=== PATIENT | female | born 1960 | race Two or more races ===

== ENCOUNTER → 2024-11-07 | Outpatient (CLI) | payer MEDICAID, SELFPAY ==
--- NOTE | 2024-11-07 16:45 | XR_ITS ---
Examination: MRI lumbar spine without contrast Date and time of exam: November 07, 2024 1816 hours INDICATIONS: Patient fell 10 years ago with injury to the lower back, followed by lower back pain numbness in the legs Technique: Multiple MRI axial and sagittal sections lumbar spine. Sagittal T2-weighted images, TR 3500, TE 118 T1 weighted transverse sections, TR 688 T8.5, T2-weighted sagittal sections T1 weighted sagittal sections TR 621, TE 30 T2 axial sections, TR 4, 190, TE 84. Findings: Adequate alignment lumbar vertebral bodies on the lateral view No lumbar fracture Mild disc narrowing L1-L2 Normal marrow signal lumbar vertebral bodies Diffuse lumbar disc desiccation No spondylolisthesis L5-S1 no disc protrusion L4-L5 no disc protrusion L3-L4 no disc protrusion L2-L3 no disc protrusion L1-L2 no disc protrusion IMPRESSION: Mild lumbar disc narrowing L1-L2 No lumbar fracture No focal lumbar disc protrusion
== END | disposition home or self-care (01) ==
LOC: SMRI 11-10 07:53
PROVIDERS: PCP Physician Assistant; Referring Provider Nurse Practitioner; Visit Provider Nurse Practitioner
DX: M48.061 Spinal stenosis, lumbar region without neurogenic claudication (principal)
CPT/HCPCS: 72148

== ENCOUNTER 2025-03-09 12:39 | Emergency (ER) | payer MEDICAID, SELFPAY ==
[2025-03-09 12:40] VITALS: BMI 18.0
[2025-03-09 12:48] VITALS: BP 168/98; PULSE 108; RESP 18; TEMP 36.9; O2SAT 100
--- NOTE | 2025-03-09 13:05 | PD.EDRME ---
Rapid Medical Screening Exam RME Arrival date/time: 03/09/25 12:39 64-year-old female with Parkinson's disease presents with concerns for anxiety and increased shaking Chief Complaint: Recheck/Abnormal Lab/Rx Vital signs: Vital Signs Temperature 98.4 F 03/09/25 12:48 Pulse Rate 108 H 03/09/25 12:48 Respiratory Rate 18 03/09/25 12:48 Blood Pressure 168/98 H 03/09/25 12:48 Pulse Oximetry (%) 100 03/09/25 12:48 Oxygen Delivery Method Room Air 03/09/25 12:48
[2025-03-09 13:27] LABS: Basophils % (Auto) 0 % (0-2.5); Eosinophils % (Auto) 0 % (0-10); Hematocrit 37.4 % (36.0-46.0); Hemoglobin 12.5 g/dL (12.0-16.0); Immature Granulocytes % (Auto) 0 % (0-0); Immature Granulocytes Auto 0.03 Thou/mm3 (0.00-0.00); Lymphocytes # (Auto) 2.2 Thou/mm3 (1.0-4.8); Lymphocytes % (Auto) 23 % (10-50); Mean Corpuscular HGB Conc 33.4 g/dl (31.0-37.0); Mean Corpuscular Hemoglobin 31.5 pg (25.0-35.0); Mean Corpuscular Volume 94 fL (80-100); Monocytes # (Auto) 0.5 Thou/mm3 (0.0-0.8); Monocytes % (Auto) 5 % (0-12); Neutrophils # (Auto) 6.7 Thou/mm3 (1.8-7.7); Neutrophils % (Auto) 71 % (37-80); Nucleated Red Blood Cell % 0 /100 WBC (0); Platelet Count 289 Thou/mm3 (140-440); RDW Standard Deviation 44.1 fL (36.4-46.3); Red Blood Count 3.97 Miln/mm3 (4.00-5.20); White Blood Count 9.6 Thou/mm3 (3.6-11.0)
[2025-03-09 13:44] LABS: Alanine Aminotransferase < 7 U/L (10-49); Albumin, Serum 5.1 gm/dL (3.4-4.8); Albumin/Globulin Ratio 1.4 (1.2-2.2); Alkaline Phosphatase 93 U/L (46-116); Anion Gap 11 (7-16); Aspartate Amino Transferase 18 U/L (0-34); BUN/Creatinine Ratio 21 Ratio (12-20); Bilirubin,Total 0.5 mg/dL (0.3-1.2); Blood Urea Nitrogen 15 mg/dL (9-23); Calcium 10.6 mg/dL (8.3-10.6); Calcium (Corrected) 10.6 mg/dL (8.5-10.1); Carbon Dioxide 26.9 mMol/L (20.0-31.0); Chloride 102 mMol/L (98-107); Creatinine (Component) 0.7 mg/dL (0.6-1.3); Estimated Creatinine Clearance 62.7 mL/min (>60); Globulin 3.7 gm/dL (2.3-3.5); Glucose 129 mg/dL (74-106); Magnesium 2.3 mg/dL (1.6-2.6); Osmolality,Calculated 282 (275-295); Potassium 3.8 mMol/L (3.4-5.1); Sodium 140 mMol/L (136-145); Total Protein 8.8 gm/dL (5.7-8.2); eGFR > 60 See Note
--- NOTE | 2025-03-09 14:14 | PC.NURSE ---
nax 1 at this time
--- NOTE | 2025-03-09 14:31 | PC.NURSE ---
nax2 at this time
--- NOTE | 2025-03-09 15:23 | PC.NURSE ---
called for meds. no answer x 3. checked outside and lobby. patient eloped. notified provider.
== END 2025-03-09 15:38 | disposition left against medical advice (07) ==
LOC: SERX 13:41
PROVIDERS: Nurse Practitioner Primary Care; Emergency Provider Family Medicine; PCP Obstetrics & Gynecology
DX: F41.9 Anxiety disorder, unspecified (principal); G20.A1 Parkinson's disease without dyskinesia, without mention of fluctuations; Z53.29 Procedure and treatment not carried out because of patient's decision for other reasons
CPT/HCPCS: 36415; 80053; 83735; 85025; 99281

== ENCOUNTER 2025-03-23 13:12 | Emergency (ER) | payer MEDICAID, SELFPAY ==
[2025-03-23 13:14] VITALS: BMI 18.3
[2025-03-23 13:40] VITALS: BP 131/90; PULSE 115; RESP 19; TEMP 36.7; O2SAT 96
--- NOTE | 2025-03-23 13:45 | XR_ITS ---
Examination: AP lateral chest 2 views TECHNIQUE: Sitting AP lateral chest 2 views Date and time: March 23, 2025 1440 hours INDICATIONS: Acute chest pain today. FINDINGS: Normal heart size. Lungs are clear. Moderate osteopenia IMPRESSION: No active disease
--- NOTE | 2025-03-23 13:46 | PD.EDRME ---
Rapid Medical Screening Exam RME Arrival date/time: 03/23/25 13:12 64-year-old female with a history of Parkinson's disease presents to the emergency room with a chief complaint of chest pain, palpitations, shortness of breath, fatigue x 2 weeks that is progressively gotten worse the last 3 days. Patient states she was sent over to the emergency room by her neurologist. Patient's caregiver believes her symptoms are due to a cause in her Parkinson medication carbidopa levodopa. I have greeted and performed a focused initial assessment of this patient. A comprehensive ED assessment and evaluation of the patient, analysis of all test results, and completion of the medical decision making process will be conducted by additional ED providers. Chief Complaint: General Adult/Misc Complain Time Seen by Provider: 03/23/25 13:19 Vital signs: Vital Signs Temperature 98.1 F 03/23/25 13:40 Pulse Rate 115 H 03/23/25 13:40 Respiratory Rate 19 03/23/25 13:40 Blood Pressure 131/90 H 03/23/25 13:40 Pulse Oximetry (%) 96 03/23/25 13:40 Oxygen Delivery Method Room Air 03/23/25 13:40 Vital signs reviewed by provider: Yes
[2025-03-23] MEDS: ACETAMINOPHEN 325 MG TABLET 650 MG PO (14:03)
[2025-03-23 15:12] LABS: Basophils % (Auto) 1 % (0-2.5); Eosinophils % (Auto) 0 % (0-10); Immature Granulocytes % (Auto) 0 % (0-0); Immature Granulocytes Auto 0.02 Thou/mm3 (0.00-0.00); Lymphocytes # (Auto) 1.7 Thou/mm3 (1.0-4.8); Lymphocytes % (Auto) 20 % (10-50); Mean Corpuscular HGB Conc 33.3 g/dl (31.0-37.0); Mean Corpuscular Hemoglobin 32.2 pg (25.0-35.0); Mean Corpuscular Volume 97 fL (80-100); Monocytes # (Auto) 0.5 Thou/mm3 (0.0-0.8); Monocytes % (Auto) 5 % (0-12); Neutrophils # (Auto) 6.4 Thou/mm3 (1.8-7.7); Neutrophils % (Auto) 74 % (37-80); Nucleated Red Blood Cell % 0 /100 WBC (0); Platelet Count 315 Thou/mm3 (140-440); Red Blood Count 4.04 Miln/mm3 (4.00-5.20); White Blood Count 8.6 Thou/mm3 (3.6-11.0)
[2025-03-23 15:23] LABS: B-Type Natriuretic Peptide < 20 pg/mL (0-100)
[2025-03-23 15:31] LABS: Partial Thromboplastin Time 25.1 Seconds (22.0-36.0); Prothrombin Time 11.2 Seconds (9.0-12.2)
[2025-03-23 15:36] LABS: Alanine Aminotransferase < 7 U/L (10-49); Albumin, Serum 4.8 gm/dL (3.4-4.8); Albumin/Globulin Ratio 1.5 (1.2-2.2); Alkaline Phosphatase 104 U/L (46-116); Anion Gap 11 (7-16); BUN/Creatinine Ratio 21 Ratio (12-20); Bilirubin,Total 0.5 mg/dL (0.3-1.2); Blood Urea Nitrogen 17 mg/dL (9-23); Calcium 9.6 mg/dL (8.3-10.6); Calcium (Corrected) 9.6 mg/dL (8.5-10.1); Carbon Dioxide 28.5 mMol/L (20.0-31.0); Chloride 102 mMol/L (98-107); Creatinine (Component) 0.8 mg/dL (0.6-1.3); Estimated Creatinine Clearance 57.4 mL/min (>60); Globulin 3.3 gm/dL (2.3-3.5); Glucose 136 mg/dL (74-106); Magnesium 2.1 mg/dL (1.6-2.6); Osmolality,Calculated 284 (275-295); Potassium 4.4 mMol/L (3.4-5.1); Sodium 141 mMol/L (136-145); Total Protein 8.1 gm/dL (5.7-8.2); Troponin I < 0.002 ng/mL (0.0-0.045); eGFR > 60 See Note
--- NOTE | 2025-03-23 19:17 | PC.NURSE ---
AT 1903 DAY SHIFT IS LOOKING FOR PT.
--- NOTE | 2025-03-23 19:17 | PC.NURSE ---
PT IS NOT IN CONF , NO ANSWER AT ER LOBBY OR OUTSIDE ER.
--- NOTE | 2025-03-23 19:22 | PC.NURSE ---
NO ANSWER AT ER LOBBY OR OUTSIDE ER.
== END 2025-03-23 19:22 | disposition left against medical advice (07) ==
PROVIDERS: Nurse Practitioner Family; Emergency Provider Family Medicine
DX: R07.9 Chest pain, unspecified (principal); R00.2 Palpitations; R06.02 Shortness of breath; R53.83 Other fatigue; R00.0 Tachycardia, unspecified; Z53.29 Procedure and treatment not carried out because of patient's decision for other reasons
CPT/HCPCS: 36415; 71046; 80053; 81001; 83735; 83880; 84484; 85025; 85610; 85730; 93005; 99281; A9270

== ENCOUNTER 2025-09-25 07:51 | Emergency (ER) | payer MEDICAID, SELFPAY ==
[2025-09-25 07:52] VITALS: BP 191/93; RESP 19; TEMP 36.9; O2SAT 94
[2025-09-25 07:57] VITALS: PULSE 108; RESP 19; O2SAT 97; BMI 18.3
--- NOTE | 2025-09-25 08:12 | EKG_ITS ---
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
--- NOTE | 2025-09-25 09:27 | XR_ITS ---
EXAMINATION: AP chest single view TECHNIQUE: AP portable semiupright chest single view Date and time: September 25, 2025, 1129 hours INDICATIONS: Reaction to medications today. FINDINGS: Minimal prominence left ventricle Ectatic thoracic aorta. No pneumonia or pulmonary edema. Prominent osteopenia IMPRESSION: No pneumonia or pulmonary edema
--- NOTE | 2025-09-25 09:31 | XR_ITS ---
Examination: CT brain head without contrast. 2-D sagittal coronal reconstructions Date and time of exam: 09/25/2025 at 10:58 a.m. CTDI: vol (mGy): 49 point DLP: (mGycm): 962 Comparison study 01/01/2021 Technique: Multiple CT axial sections of the brain have been obtained, 5 mm slice thickness. Contrast has not been administered. 2-D sagittal, coronal reconstructions have been obtained Low dose protocols were performed. One or more of the following dose reduction techniques were used; automated exposure control, adjustment of the mA and/or KV according to patient size, use of iterative reconstruction technique. Findings: There is moderate cerebral cortical atrophy noted over the anterior parietal convexities and its particularly prominent over the anterior temporal lobes on both sides. This has increased since the previous CT of 01/01/2021 I believe that the lateral and third ventricles are very minimally enlarged, the have not changed in size at all since the previous CT. Sylvian cisterns are mildly enlarged No abnormalities are seen in the [place] or white matter in the cerebrum and cerebellum or brainstem. Mild carotid artery calcification is seen in the region of the cavernous sinus bilaterally. All of the paranasal sinuses and mastoids appear clear and normal. The pituitary gland appears mildly but definitely enlarged, its superior margin is convex upward. This was not present on the previous CT study. IMPRESSION: 1. There is mild-moderate cerebral cortical atrophy noted over the frontoparietal convexities. This is definitely more prominent than on the prior CT. Ventricular system is minimally enlarged but this is unchanged. The sylvian cisterns are also slightly enlarged indicating mild atrophy in the region of the insula bilaterally. 2. I do not see any abnormalities in the [place] or white matter in the cerebrum cerebellum or brainstem 3. I believe the pituitary gland is slightly definitely enlarged. I do not believe this was present on the previous CT scan scan. I would correlate this with evaluation of all enzymes related to pituitary gland function, and I would recommend CT follow-up of this in about 6 months No significant ventricular enlargement. Intra-axial or extra-axial hemorrhage density is not seen. No mass effect or midline shift Basal cisterns are not remarkable. Fourth ventricle is midline. Cranial vault intact. Impression: Negative for acute hemorrhage, mass effect or midline shift
[2025-09-25 10:08] LABS: Collection Type, Urine Clean Catch
[2025-09-25 10:12] LABS: Lactate (Lactic Acid) 1.2 mMol/L (0.4-2.0)
[2025-09-25] MEDS: SODIUM CHLORIDE 0.9% 500 ML 500 ML 100 ML IV (10:12)
[2025-09-25] MEDS: MethylPREDNISolone SOD SUCC 62.5 MG/ML 2ML VIAL 60 MG IVP (10:13)
[2025-09-25 10:16] LABS: Bilirubin,Urine Negative (Negative); Blood,Urine 1+ (Negative); Clarity,Urine Clear (Clear/Hazy); Color,Urine Lt-Yellow (Lt Yel-Yel); Glucose, Urine Negative (Negative); Hyaline Casts,Urine < 1 /hpf (0-1); Ketones,Urine Trace (Negative); Leukocyte Esterase,Urine Negative (Negative); Nitrite,Urine Negative (Negative); PH,Urine 6.0 (5.0-7.0); Protein,Urine Negative (Neg - Trace); RBC,Urine 3 /hpf (0-3); Specific Gravity,Urine 1.012 (1.001-1.035); Squamous Epithelial Cell,Urine 1 /hpf (0-5); Urobilinogen,Urine Negative mg/dL (0.0-1.0); WBC,Urine 2 /hpf (0-5)
[2025-09-25 10:20] LABS: Basophils # (Auto) 0.0 Thou/mm3 (0.0-0.2); Basophils % (Auto) 0 % (0-2.5); Eosinophils # (Auto) 0.0 Thou/mm3 (0.0-0.5); Eosinophils % (Auto) 0 % (0-10); Hematocrit 37.1 % (36.0-46.0); Hemoglobin 12.7 g/dL (12.0-16.0); Immature Granulocytes Auto 0.03 Thou/mm3 (0.00-0.00); Lymphocytes # (Auto) 2.0 Thou/mm3 (1.0-4.8); Lymphocytes % (Auto) 20 % (10-50); Mean Corpuscular HGB Conc 34.2 g/dl (31.0-37.0); Mean Corpuscular Hemoglobin 31.1 pg (25.0-35.0); Mean Corpuscular Volume 91 fL (80-100); Monocytes # (Auto) 0.5 Thou/mm3 (0.0-0.8); Monocytes % (Auto) 5 % (0-12); Neutrophils # (Auto) 7.5 Thou/mm3 (1.8-7.7); Neutrophils % (Auto) 75 % (37-80); Nucleated Red Blood Cell # 0.00 Thou/mm3 (0.00-0.00); Nucleated Red Blood Cell % 0 /100 WBC (0); Platelet Count 317 Thou/mm3 (140-440); RDW Standard Deviation 41.9 fL (36.4-46.3); Red Blood Count 4.09 Miln/mm3 (4.00-5.20); White Blood Count 10.0 Thou/mm3 (3.6-11.0)
[2025-09-25 10:32] VITALS: BP 148/86; PULSE 64; RESP 19; TEMP 36.8; O2SAT 97
[2025-09-25 10:43] LABS: INR 1.0 (0.9-1.3); Prothrombin Time 11.0 Seconds (9.0-12.2)
[2025-09-25 10:52] LABS: B-Type Natriuretic Peptide 25 pg/mL (0-100)
[2025-09-25 10:55] LABS: Alanine Aminotransferase 26 U/L (10-49); Albumin, Serum 4.7 gm/dL (3.4-4.8); Albumin/Globulin Ratio 1.3 (1.2-2.2); Alkaline Phosphatase 96 U/L (46-116); Anion Gap 11 (7-16); Aspartate Amino Transferase 29 U/L (0-34); BUN/Creatinine Ratio 17 Ratio (12-20); Bilirubin,Total 0.6 mg/dL (0.3-1.2); Blood Urea Nitrogen 12 mg/dL (9-23); Calcium 10.2 mg/dL (8.3-10.6); Calcium (Corrected) 10.2 mg/dL (8.5-10.1); Carbon Dioxide 26.1 mMol/L (20.0-31.0); Chloride 102 mMol/L (98-107); Creatinine (Component) 0.7 mg/dL (0.6-1.3); Estimated Creatinine Clearance 64.8 mL/min (>60); Globulin 3.7 gm/dL (2.3-3.5); Glucose 111 mg/dL (74-106); Magnesium 1.9 mg/dL (1.6-2.6); Osmolality,Calculated 278 (275-295); Potassium 4.3 mMol/L (3.4-5.1); Sodium 139 mMol/L (136-145); Total Protein 8.4 gm/dL (5.7-8.2); Troponin I < 0.020 ng/mL (0.0-0.045); eGFR > 60 See Note
--- NOTE | 2025-09-25 11:06 | EDNOTE_ITS ---
ED SOB =RME/HPI General Chief Complaint: Shortness of Breath/Dyspnea Stated Complaint: SOB Arrival date/time: 09/25/25 07:51 Limitations: no limitations RME / HPI RME / HPI Narrative: 65 year old female with history of Parkinson's disease, hypertension presents to the ED BIBA from SNF for evaluation of difficulty swallowing beginning 1 week ago. Accompanied by occasionally feeling short of breath. In the ED, patient has no other associated symptoms or complaints. Related Data Previous Rx's ?Medication ?Instructions ?Recorded hydrocodone 10 mg-acetaminophen 1 tab PO TID PRN pain #20 tabs 01/01/21 325 mg tablet Allergies Allergy/AdvReac Type Severity Reaction Status Date / Time No Known Allergies Allergy Verified 03/09/25 12:44 Review of Systems Review of Systems Systems Reviewed: All systems reviewed, normal except as documented Past Medical History Past Medical History NEUROLOGIC: Positive Parkinson's Disease (STAGE 4) CARDIAC: Positive Hypertension PSYCHO/SOCIAL: Positive Depression and Anxiety Surgical History SURGICAL: Positive Hysterectomy, Tubal Ligation and Section Social History SMOKING STATUS: Never smoker ED Exam General Limitations: Present no limitations General appearance: Present alert (awake), in no apparent distress and other (Nonverbal) Head Head exam: Present atraumatic Eye Eye exam: Present normal appearance, PERRL and EOMI ENT ENT exam: Present normal exam, normal oropharynx and mucous membranes moist Neck Neck exam: Present normal inspection, full ROM and trachea midline Chest Chest inspection: Present normal inspection and symmetric chest wall rise Cardiovascular Cardiovascular exam: Present regular rate, normal rhythm and normal heart sounds Abdominal Exam Abdominal exam: Present soft, normal bowel sounds and other (NO feeding tube in place) Extremities Exam Extremities exam: Present other (Contracted upper extremities with contracture of both wrists and hands, nonmobile ) Back Exam Back exam: Present normal inspection and full ROM Neurological Exam Neurological exam: Present alert (awake, nonverbal) and other (severe bradykinesia, parkinsonian features, phases of swallowing are delayed though appear to be normal) Psychiatric Psychiatric exam: Present normal affect and normal mood Skin Skin exam: Present warm, dry, intact and normal color Course Quality Measures none Orders Category Date Time Status EKG (ED ONLY) *Do not use* NOW Care 09/25/25 08:12 Completed Insert [Insert IV] NOW Care 09/25/25 09:[address] head/brain wo con Stat Exams 09/25/25 09:31 Completed CXRP [XR chest 1V portable] Stat Exams 09/25/25 09:27 Completed EKG (ED Only) Stat Exams 09/25/25 08:12 Draft B-Type Natriuretic Peptide Stat Lab 09/25/25 10:06 Completed Blood Culture (Lab) Stat Lab 09/25/25 10:00 Received CBC Stat Lab 09/25/25 10:00 Completed Comprehensive Metabolic Panel Stat Lab 09/25/25 10:00 Completed Lactic Acid [Lactate (Lactic Acid)] Stat Lab 09/25/25 10:00 Completed Magnesium Stat Lab 09/25/25 10:00 Completed Prothrombin Time with INR Stat Lab 09/25/25 10:00 Completed Troponin I Stat Lab 09/25/25 10:00 Completed Urinalysis Stat Lab 09/25/25 09:54 Completed MethylPREDNISolone.* [SoluMEDROL Inj] Med 09/25/25 09:27 Discontinued 60 mg IVP X1 ONE Pantoprazole Inj [Protonix Inj] Med 09/25/25 09:27 Discontinued 40 mg IVP X1 ONE Sodium Chloride 0.9% 500 ml [Ns] 500 ml Med 09/25/25 09:27 Discontinued IV 100 mls/hr Vital Signs Vital signs: Vital Signs Temperature 98.5 F 09/25/25 07:52 Respiratory Rate 19 09/25/25 07:52 Blood Pressure 191/93 H 09/25/25 07:52 Pulse Oximetry (%) 94 L 09/25/25 07:52 Pulse ox is 94% on room air which is adequate. Shortness of Breath / Dyspnea MDM Narrative MDM Narrative:: Sofia Cazares am scribing for and in the presence of Dr. Andersen. Studies today are unremarkable. Symptoms today most consistent with advanced Parkinson's disease. Patient remains clinically stable throughout the emergency department visit. We reviewed all the results, analysis, and treatment plans. Patient is amenable to discharge. Strict return precautions were outlined. Patient data External records reviewed:: [facility] previous records, EMS form and Long Term records Clinical information provided by:: EMS Social determinants that could affect healthcare access:: housing ([place] resident ) Patient has the following chronic illnesses:: Parkinson's disease, hypertension How is presenting disease/condition affected by chronic disease/condition?: exac erbated by Evaluation data The following diagnostics were reviewed and interpreted by me:: lab results, radiology exam(s) and EKG tracing(s) (EKG @ 08:58 am. Normal sinus rhythm, rate 97, no STEMI. ) Lab and/or radiology exams considered but not ordered:: None Interpretation Summary: Ordering Physician: Selwyn Andersen MD Date of Service: 09/25/25 Procedure(s): XR chest 1V portable Accession Number(s): [id number] cc: Selwyn Andersen MD; Addison Chowdary MD; Kar Capps MD~ EXAMINATION: AP chest single view TECHNIQUE: AP portable semiupright chest single view Date and time: September 25, 2025, 1129 hours INDICATIONS: Reaction to medications today. FINDINGS: Minimal prominence left ventricle Ectatic thoracic aorta. No pneumonia or pulmonary edema. Prominent osteopenia IMPRESSION: No pneumonia or pulmonary edema Dictated By: Addison Chowdary MD Signed By: <Electronically signed by Addison Chowdary MD in OV> 09/25/25 1326 Ordering Physician: Selwyn Andersen MD Date of Service: 09/25/25 Procedure(s): CT head/brain wo con Accession Number(s): [id number] cc: Selwyn Andersen MD; Addison Morgan MD; Kar Capps MD~ Examination: CT brain head without contrast. 2-D sagittal coronal reconstructions Date and time of exam: 09/25/2025 at 10:58 a.m. CTDI: vol (mGy): 49 point DLP: (mGycm): 962 Comparison study 01/01/2021 Technique: Multiple CT axial sections of the brain have been obtained, 5 mm slice thickness. Contrast has not been administered. 2-D sagittal, coronal reconstructions have been obtained Low dose protocols were performed. One or more of the following dose reduction techniques were used; automated exposure control, adjustment of the mA and/or KV according to patient size, use of iterative reconstruction technique. Findings: There is moderate cerebral cortical atrophy noted over the anterior parietal convexities and its particularly prominent over the anterior temporal lobes on both sides. This has increased since the previous CT of 01/01/2021 I believe that the lateral and third ventricles are very minimally enlarged, the have not changed in size at all since the previous CT. Sylvian cisterns are mildly enlarged No abnormalities are seen in the [place] or white matter in the cerebrum and cerebellum or brainstem. Mild carotid artery calcification is seen in the region of the cavernous sinus bilaterally. All of the paranasal sinuses and mastoids appear clear and normal. The pituitary gland appears mildly but definitely enlarged, its superior margin is convex upward. This was not present on the previous CT study. IMPRESSION: 1. There is mild-moderate cerebral cortical atrophy noted over the frontoparietal convexities. This is definitely more prominent than on the prior CT. Ventricular system is minimally enlarged but this is unchanged. The sylvian cisterns are also slightly enlarged indicating mild atrophy in the region of the insula bilaterally. 2. I do not see any abnormalities in the [place] or white matter in the cerebrum cerebellum or brainstem 3. I believe the pituitary gland is slightly definitely enlarged. I do not believe this was present on the previous CT scan scan. I would correlate this with evaluation of all enzymes related to pituitary gland function, and I would recommend CT follow-up of this in about 6 months No significant ventricular enlargement. Intra-axial or extra-axial hemorrhage density is not seen. No mass effect or midline shift Basal cisterns are not remarkable. Fourth ventricle is midline. Cranial vault intact. Impression: Negative for acute hemorrhage, mass effect or midline shift Dictated By: Addison Morgan MD Signed By: <Electronically signed by Addison Morgan MD in [place]> 09/25/25 1125 Medications / Prescriptions Medications or Prescriptions considered but not ordered:: None Medication administrations:: Medication Administration History Discontinued Medications Sodium Chloride (Ns) 500 mls @ 100 mls/hr IV .Q5H ONE Stop: 09/25/25 14:26 Last Infusion: 09/25/25 13:00 Dose: 0 mls/hr Documented By: Admin: 09/25/25 10:12 Dose: 100 mls/hr Documented By: KELSEY Methylprednisolone Sodium Succinate (Methylprednisolone Sod Succ 62.5 Mg/Ml 2ml Vial) 60 mg IVP X1 ONE Stop: 09/25/25 09:28 Last Admin: 09/25/25 10:13 Dose: 60 mg Documented By: DB Pantoprazole Sodium (Pantoprazole Inj 40 Mg Vial) 40 mg IVP X1 ONE Stop: 09/25/25 09:28 Last Admin: 09/25/25 10:14 Dose: 40 mg Documented By: DB See above Consultations Consultation(s) initiated? (list below): No Diagnosis Shortness of Breath Differential Diagnosis: acute exacerbation of chronic obstructive airways disease, congestive heart failure and community acquired pneumonia Most likely diagnosis given after review of the tests above:: Parkinsons disease Swallowing dysfunction Dypsnea Admission Indicated Admission indicated?: not indicated Admission Request Was there a request for admission?: No Disposition Plan Disposition Plan: Discharge Discharge Attestation Discharge Attestation: The patient and all family members were given an opportunity to ask questions and understood the discharge instructions. Discharge instructions specifically effects, indications for sooner follow up or return to the emergency department, and the expected course of current diagnosis. Patient condition: Stable Discharge Plan Plan Patient Disposition: HOME (Self Care) Patient condition on transfer: Stable Prescriptions/Referrals Prescriptions/Med Rec: No Action hydrocodone-acetaminophen 10-325 mg tablet 1 tab PO TID MDD 3 PRN (Reason: pain) Qty: 20 0RF Referrals: Kar Capps MD [Primary Care Provider] - In 1 week Problem List Clinical Impression: Parkinson's disease (tremor, stiffness, slow motion, unstable posture), Dyspnea, Swallowing dysfunction Patient/Caregiver Discharge Instructions Discharge Activity: activity as tolerated Education Materials: Dysphagia: Exercises, Exercise for Parkinson Disease, Parkinson Disease Caregiver, ED Shortness of Breath (Dyspnea) Additional Instructions: Please see your neurologist as soon as possible. Please discuss at that time your swallowing difficulties and difficulties with ambulation. Continue your same medications until you see your neurologist. Print Language: Maltese Stand Alone Forms: [facility] Award Info., Patient Portal Info Letter
[2025-09-25 13:04] VITALS: BP 178/76; PULSE 91; RESP 16; TEMP 37.4; O2SAT 99
== END 2025-09-25 13:05 | disposition home or self-care (01) ==
PROVIDERS: Emergency Provider Family Medicine; PCP Obstetrics & Gynecology
DX: G20.A1 Parkinson's disease without dyskinesia, without mention of fluctuations (principal); R13.10 Dysphagia, unspecified; R94.31 Abnormal electrocardiogram [ECG] [EKG]
CPT/HCPCS: 36415; 36600; 70450; 71045; 80053; 81001; 82803; 83605; 83735; 83880; 84484; 85025; 85610; 87040; 93005; 96361; 96374; 96375; 99284; J2470; J2919; J7999